=== PATIENT | female | born 1965 | race Caucasian/White ===

== ENCOUNTER 2016-07-07 16:59 | Emergency (ER) | payer OTHER ==
[~2016-07-07] VITALS: Ht 160 cm; Wt 61.2 kg
[~2016-07-07 16:59] MED LIST: ACETAMINOPHEN/H1 TAB PO; AUGMENTIN 875 M1 TAB PO; AUGMENTIN 875875 MG PO; CYCLOBENZAPRINE10 M1 PO; CYMBALTA30 M1 PO; DILAUDID2 M1 PO; DOCUSATE SODIU100 MG PO; FLUCONAZOLE200 MG PO; GABAPENTIN300 MG PO; NAPROXEN500 MG PO; NEURONTIN300 MG PO; PERCOCET 325 MG1 TA2 PO; TRAZODONE100 MG PO
--- NOTE | 2016-07-07 18:32 | ED GENERAL ADULT ---
History of Present Illness General Chief Complaint: General Adult Stated Complaint: PT HAS A LIVAN FEVER Source: patient Exam Limitations: no limitations Vital Signs & Intake/Output Vital Signs & Intake/Output Vital Signs Date Time Temp Pulse Resp B/P Pulse O2 O2 Flow FiO2 Ox Delivery Rate 07/07 1941 97.8 98 18 140/70 100 Room Air 07/07 1900 Room Air 07/07 1715 101.0 07/07 1705 101.0 111 18 137/90 95 Room Air Allergies Coded Allergies: norfloxacin (SOB 10/06/15) Reconcile Medications Albuterol Sulfate (Ventolin Hfa) 90 MCG HFA.AER.AD 2 PUF INH Q4-6 PRN PRN SHORTNESS OF BREATH Benzonatate (Tessalon Perle) 100 MG CAPSULE 1 CAP PO TID PRN COUGH Duloxetine Hydrochloride (Cymbalta) 30 MG CAPSULE.DR 3 CAP PO DAILY DEPRESSION (Reported) Estradiol 2 MG TABLET 1 TAB PO DAILY HRT (Reported) Ketorolac Tromethamine 10 MG TABLET 1 TAB PO TID PRN pain received IM in ER Methylprednisolone. (Medrol) 4 MG TAB.DS.PK 1 DP PO AD INFLAMMATION 6 on day 1 then reduce by one tablet daily until gone Mometasone Furoate (Nasonex) 50 MCG SPRAY.PUMP 2 SPRAY NASB DAILY PRN CONGESTION Robitussin AC (Guaifenesin-Codeine Syrup) 200 MG-20 MG/10 ML LIQUID 10 ML PO TID PRN COUGH Triage Note: 51 YO FEMALE TO TRIAGE C/O FEVER AND COUGHING X2 DAYS. STATES SHE TOOK SUDAPHED THIS AM. TEMP 101.0 AT THIS TIME. ALSO C/O URINATING ON SELF WHEN SHE COUGH AND CONSTIPATED. PT ALSO C/O SORE THROAT. Triage Nurses Notes Reviewed? yes Onset: Gradual Duration: getting worse Timing: recent history Severity: severe Severity Numbers: 7 HPI: Patient is a 51-year-old female who presents emergent with a 2 day history of gradual onset of worsening body aches productive white cough, chills, weakness and fatigue sore throat dizziness back pain No similar sick contacts. Patient can tolerate by mouth Patient also complains of head congestion nasal congestion runny nose. Patient does not smoke. Denies any chest pain and arm pain jaw pain nausea vomiting. Past History Travel History Traveled to [place] past 21 day No Medical History Any Pertinent Medical History? see below for history Neurological: NONE EENT: NONE Cardiovascular: MVP Respiratory: NONE Gastrointestinal: constipation Hepatic: NONE Renal: nephrolithiasis, pyelonephritis Musculoskeletal: chronic back pain (status post spinal fusion) Psychiatric: depression Endocrine: NONE Blood Disorders: NONE Cancer(s): NONE [employer]/Reproductive: endometriosis History of MRSA: No History of VRE: No History of CDIFF: No Surgical History Surgical History: , spinal fusion, abdominoplasty, breast augmentation, tubal ligation Psychosocial History Who do you live with Family Services at Home None What is your primary language Japanese Tobacco Use: Never used Family History Family History, If Any: MOTHER FH: hypertension FATHER FH: hypertension Relation not specified for: FH: CAD (coronary artery disease) FH: depression Hypoglycemia Hx Contributory? No Review of Systems Review of Systems Constitutional: Reports: see HPI, chills, fever. EENTM: Reports: see HPI, nasal congestion. Respiratory: Reports: see HPI, cough, short of breath. Cardiovascular: Reports: see HPI. Denies: chest pain. GI: Reports: no symptoms. Genitourinary: Reports: no symptoms. Musculoskeletal: Reports: see HPI, joint pain, muscle pain. Skin: Reports: no symptoms. Neurological/Psychological: Reports: see HPI, headache. Hematologic/Endocrine: Reports: no symptoms. Immunologic/Allergic: Reports: no symptoms. All Other Systems: Reviewed and Negative Physical Exam Physical Exam General Appearance: mild distress Comments: HEENT: extraocular motion intact, no nystagmus. Pupils equally round and reactive to light and accommodation. Nose is atraumatic. External auditory canal and Tympanic membranes clear. Pharynx normal. No swelling or edema. Nasal congestion noted Nontender sinus Neck: Supple, no lymphadenopathy, normal range of motion without pain or tenderness Back: Nontender, no CVA tenderness. Cardiovascular: Regular rate and rhythms no murmurs rubs or gallops, normal JVP Respiratory: Chest nontender. No respiratory distress.breath sounds clear to auscultation bilaterally Abdomen: Soft, nontender nondistended, no appreciable organomegaly. Normal bowel sounds. No ascites Extremity: No edema, no calf tenderness to palpation, normal and equal pulses. Neuro: Alert oriented x3, motor sensory normal, Skin: No appreciable rash on exposed skin, skin is warm and dry. Psych: Mood and affect is normal, memory and judgment is normal. Core Measures ACS in differential dx? No CVA/TIA Diagnosis: No Severe Sepsis Present: No Septic Shock Present: No Progress Differential Diagnoses I considered the following diagnoses in my evaluation of the patient: [Sepsis, pneumonia, viral syndrome, influenza, meningitis,] Plan of Care: Orders Procedure Date/time Status COMPREHENSIVE METABOLIC PANEL 07/07 184 Complete CBC WITHOUT DIFFERENTIAL 07/07 184 Complete RAPID VIRAL INFLUENZA A 07/07 183 Complete THROAT CULTURE W/QUICK STREP 07/07 1706 Active Laboratory Tests 07/07/16 1905: Anion Gap 12, Estimated GFR > 60, BUN/Creatinine Ratio 7.5, Glucose 103 H, Calcium 8.6, Total Bilirubin 0.4, AST 22, ALT 29, Alkaline Phosphatase 76, Total Protein 7.5, Albumin 3.9, Globulin 3.6, Albumin/Globulin Ratio 1.1, CBC w Diff NO MAN DIFF REQ, RBC 4.32, MCV 82.6, MCH 28.0, RDW 14.0, MPV 8.2, Gran % 72.2, Lymphocytes % 10.9 L, Monocytes % 15.7 H, Eosinophils % 0.6, Basophils % 0.6, Absolute Granulocytes 2.6, Absolute Lymphocytes 0.4 L, Absolute Monocytes 0.6, Absolute Eosinophils 0, Absolute Basophils 0, PUBS MCHC 33.9 Patient was given nebulizer treatment to improve patient's airway complaints Oxygen saturation is 98% room air no respiratory distress Patient was given IV fluids and nebulizer treatment and had improvement of her presenting complaints. Patient also was given ketorolac for body aches. Patient had unremarkable blood work and negative influenza and negative strep in which due to history of present illness and exam findings I suspect patient had viral syndrome UPPER RESPIRATORY infection. Patient was able tolerate by mouth and discharge. Patient was afebrile on discharge ([place]) Initial ED EKG: none Departure Departure Disposition: HOME OR SELF CARE Condition: Stable Clinical Impression Primary Impression: Upper respiratory infection Secondary Impressions: Viral syndrome Referrals: PRIYANK LEVINE DO (PCP/Family) Additional Instructions: As discussed begin [id number] Mucinex and Sudafed for your symptoms. Begin the prescription for Tessalon Perles and Robitussin with codeine for cough , Medrol Dosepak for inflammation, Ventolin for shortness of breath, and Nasonex for congestion. Begin drinking plenty of water for hydration and begin over-the -counter Tylenol for fevers in the prescription of ketorolac for body aches. If symptoms worsen return to emergency room. If no better on Saturday follow-up with her primary care doctor. prescriptions are waiting at [facility] pharmacy Departure Forms: Customer Survey General Discharge Information Prescriptions: Current Visit Scripts Benzonatate (Tessalon Perle) 1 CAP PO TID PRN COUGH #21 CAP Robitussin AC (Guaifenesin-Codeine Syrup) 10 ML PO TID PRN COUGH #120 ML Albuterol Sulfate (Ventolin Hfa) 2 PUF INH Q4-6 PRN PRN SHORTNESS OF BREATH #1 INHAL Methylprednisolone. (Medrol) 1 DP PO AD #1 DP 6 on day 1 then reduce by one tablet daily until gone Mometasone Furoate (Nasonex) 2 SPRAY NASB DAILY PRN CONGESTION #1 INHAL Ketorolac Tromethamine 1 TAB PO TID PRN pain #15 TAB received IM in ER Critical Care Note Critical Care Note Critical Care Time: non-applicable
[2016-07-07] MEDS ORDERED: ESTRADIOL2 M1 PO (18:41)
[2016-07-07 19:23] LABS: ABSOLUTE BASOPHIL COUNT 0 /CUMM (0.0-0.2); ABSOLUTE EOSINOPHIL COUNT 0 /CUMM (0.0-0.7); ABSOLUTE GRANULOCYTE CT 2.6 /CUMM (1.4-6.5); ABSOLUTE LYMPH COUNT 0.4 /CUMM (1.2-3.4); ABSOLUTE MONOCYTE COUNT 0.6 /CUMM (0.10-0.60); BASOPHIL % 0.6 % (0.0-2.0); EOSINOPHIL % 0.6 % (0-5); GRANULOCYTE % 72.2 % (42.2-75.2); HEMATOCRIT 35.7 % (37-47); MEAN CORPUSCULAR HGB CONC 33.9 G/DL (33.0-37.0); MEAN CORPUSCULAR VOLUME 82.6 FL (81.0-99.0); MEAN PLATELET VOLUME 8.2 FL (7.4-10.4); PLATELET COUNT 180 /CUMM (130-400); RED BLOOD CELL CT 4.32 /CUMM (4.20-5.40); WHITE BLOOD CELL COUNT 3.6 /CUMM (4.8-10.8)
[2016-07-07 19:41] VITALS: BP 140/70
[2016-07-07] MEDS ORDERED: TESSALON PERLE100 M1 PO (19:54)
[2016-07-07] MEDS ORDERED: GUAIFENESIN-COD10 ML PO (19:54)
[2016-07-07] MEDS ORDERED: NASONEX17 GM NASB (19:54)
[2016-07-07] MEDS ORDERED: MEDROL4 M2 PO (19:54)
[2016-07-07] MEDS ORDERED: VENTOLIN HFA18 GM INH (19:54)
[2016-07-07] MEDS ORDERED: KETOROLAC TROME10 M1 PO (19:56)
== END 2016-07-07 20:20 ==
LOC: ERH 16:59
PROVIDERS: Physician Assistant
DX: J06.9 Acute upper respiratory infection, unspecified (principal); B34.9 Viral infection, unspecified; R53.1 Weakness
CPT/HCPCS: 1263; 87804; 87804-59; 96361; 96374; J1885